=== PATIENT | female | born 1990 | race Caucasian/White ===

== ENCOUNTER 2018-09-03 13:58 | Emergency (ER) | payer OTHER ==
[~2018-09-03] VITALS: Ht 165.1 cm; Wt 81.6 kg
[2018-09-03 13:59] VITALS: BP 136/89; Ht 165.1 cm; Wt 81.6 kg
== END 2018-09-03 15:29 | disposition left against medical advice (07) ==
LOC: ED 13:58
DX: Z53.21 Procedure and treatment not carried out due to patient leaving prior to being seen by health care provider (principal)